=== PATIENT | female | born 2000 | race Caucasian/White ===

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

== ENCOUNTER 2021-06-15 17:28 | Emergency (ER) | payer OTHER ==
[~2021-06-15] VITALS: Ht 167.6 cm; Wt 105.3 kg
--- NOTE | 2021-06-15 21:00 | RAD ---
Exam Date: 06/15/2021 8:26 PM US PELVIS W/TV Indication: Reason: pelvic pain hx of ovarian cysts / Spl. Instructions: / History: . TECHNIQUE: Multiple longitudinal and transverse sonographic images were obtained of the pelvis using a transabdominal and transvaginal approach. Color Doppler imaging was performed on the ovaries bila terally. Transvaginal imaging was included to better evaluate the uterus, ovaries, and adnexa. FINDINGS: The uterus measures 9.4 x 4.2 x 3.7 cm. The endometrial complex measures 10 mm in thickness. The ovaries are normal in size and echogenicity. The right ovary measures 4.6 x 2.1 x 2.0 cm. The left ovary measures 3.0 x 2.2 x 2.3 cm. Color Doppler imaging demonstrates normal vascularity in th e ovaries bilaterally. No pelvic free fluid or mass is seen. IMPRESSION: Normal examination of the uterus and ovaries. Electronically signed by: Thong Acosta MD (06/15/2021 8:57 PM) [facility]
--- NOTE | 2021-06-15 21:46 | PHYS DOC ---
Past Medical History Past Medical History: Asthma, Migraines, Ovarian Cyst, Other Additional Past Medical Histor: poly cyst dx (RONTAPAN TABLET MAKING MACHINE OPERATOR) Past Surgical History: Other Additional Past Surgical Histo: ACL (TAPAN VELASQUEZ Vannesa TABLET MAKING MACHINE OPERATOR) Smoking Status: Current Every Day Smoker Alcohol Use: Occasionally Drug Use: None (RAJITAPAN Manzano TABLET MAKING MACHINE OPERATOR) General Adult EDM: Chief Complaint: PELVIC PAIN HPI: HPI: Patient is a 20 year old female with history of ovarian cyst, PCOS, asthma, presenting to the ED today complaining of 5 out of 10 vaginal pain, symptoms of been going on since yesterday, patient states she feels like something is going to fall out of her vagina. Patient also reports white vaginal discharge, denies any concerns for STDs. Denies anything specifically exacerbating or relieving her pain. She states she feels constipated, last bowel movement was yesterday and hard. History of constipation (RONTAPAN Granado TABLET MAKING MACHINE OPERATOR) Review of Systems: Review of Systems: Constitutional: Denies fever or chills. [] GI: Reports constipation, denies nausea, vomiting, bloody stools or diarrhea. [] Female : Reports vaginal pain, sensation of something falling out of her vagi na : Denies dysuria. [] Musculoskeletal: Denies back pain or joint pain. [] Integument: Denies rash. [] Neurologic: Denies headache, focal weakness or sensory changes. [] Psychiatric: Denies depression or anxiety. [] (RAJINatachaTAPAN Granado TABLET MAKING MACHINE OPERATOR) Heart Score: C/O Chest Pain: N/A Risk Factors: Risk Factors: DM, Current or recent (<one month) smoker, HTN, HLP, family history of CAD, obesity. Risk Scores: Score 0 - 3: 2.5% MACE over next 6 weeks - Discharge Home Score 4 - 6: 20.3% MACE over next 6 weeks - Admit for Clinical Observation Score 7 - 10: 72.7% MACE over next 6 weeks - Early Invasive Strategies (TAPAN VELASQUEZ TABLET MAKING MACHINE OPERATOR) Allergies: Allergies: Allergies Coded Allergies Type Severity Reaction Last Updated Verified No Known Drug Allergies 06/15/21 No (TAPAN VELASQUEZ TABLET MAKING MACHINE OPERATOR) Physical Exam: PE: Constitutional: Well developed, well nourished, no acute distress, non-toxic appearance. [] Abdomen: Bowel sounds normal, soft, no tenderness, no masses, no pulsatile masses. [] Wet prep External pelvis is normal, cervix is visualized, closed, no CMT, no adnexal tenderness Skin: Warm, dry, no erythema, no rash. [] Back: No tenderness, no CVA tenderness. [] Extremities: No tenderness, no cyanosis, no clubbing, ROM intact, no edema. [] Neurologic: Alert and oriented X 3, normal motor function, normal sensory function, no focal deficits noted. [] Psychologic: Affect normal, judgement normal, mood normal. [] (TAPAN VELASQUEZ TABLET MAKING MACHINE OPERATOR) Current Patient Data: Labs: Microbiology 06/15/21 Wet Prep - Final, Complete Vital Signs: Vital Signs Date Time Temp Pulse Resp B/P (MAP) Pulse Ox O2 Delivery O2 Flow Rate FiO2 06/15/21 19:00 99.2 83 16 140/86 (104) 98 Room Air 99.2 (TAPAN VELASQUEZ TABLET MAKING MACHINE OPERATOR) EKG: EKG: [] (TAPAN VELASQUEZ TABLET MAKING MACHINE OPERATOR) Radiology/Procedures: Radiology/Procedures: []PROCEDURE: PELVIS W/TV Exam Date: 06/15/2021 8:26 PM US PELVIS W/TV Indication: Reason: pelvic pain hx of ovarian cysts / Spl. Instructions: / History: . TECHNIQUE: Multiple longitudinal and transverse sonographic images were obtaine d of the pelvis using a transabdominal and transvaginal approach. Color Doppler imaging was performed on the ovaries bilaterally. Transvaginal imaging was included to better evaluate the uterus, ovaries, and adnexa. FINDINGS: The uterus measures 9.4 x 4.2 x 3.7 cm. The endometrial complex measures 10 mm in thickness. The ovaries are normal in size and echogenicity. The right ovary measures 4.6 x 2.1 x 2.0 cm. The left ovary measures 3.0 x 2.2 x 2.3 cm. Color Doppler imaging demonstrates normal vascularity in the ovaries bilaterally. No pelvic free fluid or mass is seen. IMPRESSION: Normal examination of the uterus and ovaries. Electronically signed by: Jaylin Acosta MD (06/15/2021 8:57 PM) [facility] DICTATED and SIGNED BY: JAYLIN ACOSTA MD DATE: 06/15/[id number] 0 (TAPAN VELASQUEZ APRN) Course & Med Decision Making: Course & Med Decision Making Pertinent Labs and Imaging studies reviewed. (See chart for details) This a 20-year-old female checked presenting to the ED today complaining of pelvic pain and sensation of something falling out of her vagina, she is also complaining of vaginal discharge and constipation. Pelvic ultrasound is negative, wet prep positive for BV discharged with Flagyl. Negative urine hCG, UA negative for infection, abdomen supine and upright noted for constipation. Discharged with mag citrate. Discussed constipation prevention and management (TAPAN VELASQUEZ APRN) Course & Med Decision Making Patients Care and treatment plan provided by ER Nurse Practitioner. I was available for consult. Patient's chart reviewed. (SHAYY ADKINS DO) Dragon Disclaimer: Kristian Disclaimer: This electronic medical record was generated, in whole or in part, using a voice recognition dictation system. (TAPAN VELASQUEZ APRN) Departure Departure Impression: Primary Impression: Bacterial vaginosis Additional Impression: Constipation Qualified Codes: K59.00 - Constipation, unspecified Disposition: HOME / SELF CARE / HOMELESS Condition: STABLE Referrals: ARIELA CAIN MD (PCP) Follow-up next week Patient Instructions: Bacterial Vaginosis, [id number], Constipation, Adult Additional Instructions: You were evaluated in the emergency room and noted to have bacterial vaginosis, you were also noted to be constipated. Please take the prescribed antibiotics until completed. Please increase your dietary fiber intake as well as water intake, take MiraLAX daily to reduce incidence of constipation. Scripts Polyethylene Glycol 3350 (MIRALAX) 119 Gm Powder 17 GM PO DAILY for constipation, #255 GM 0 Refills dissolve in water Prov: TAPAN VELASQUEZ APRN 06/15/21 Metronidazole (METRONIDAZOLE) 500 Mg Tablet 1 TAB PO BID for 7 Days, #14 TAB 0 Refills Prov: TAPAN VELASQUEZ APRN 06/15/21 TAPAN VELASQUEZ APRN Jun 15, 2021 21:46 SHAYY ADKINS DO Jun 16, 2021 18:45
[2021-06-15 22:36] LABS: CLARITY,URINE CLEAR; COLOR,URINE YELLOW
[2021-06-15 22:37] LABS: BILIRUBIN,URINE NEGATIVE (NEG)
[2021-06-15 22:38] LABS: AMORPHOUS SEDIMENT,UR PRESENT /HPF; BACTERIA,URINE FEW /HPF (0-FEW); NITRITE,URINE NEGATIVE (NEG); PH,URINE 7.5 (<5.0-8.0); PROTEIN,URINE NEGATIVE (NEG-TRACE); RBC,URINE 0 /HPF (0-2); UROBILINOGEN,URINE 0.2 mg/dL (0.2 mg/dL); WBC,URINE OCC /HPF (0-4)
[2021-06-15 23:00] VITALS: BP 101/71
[2021-06-15] MEDS ORDERED: POLY119P4 PO (23:17)
[2021-06-15] MEDS ORDERED: METR-34 PO (23:17)
[2021-06-15] MEDS ORDERED: BISACODYL 5 MG TABLET.DR. PO STA (23:24)
[2021-06-15] MEDS ORDERED: MAGNESIUM CITRATE 296 ML SOLUTION. PO ONE (23:30)
--- NOTE | 2021-06-15 23:33 | RAD ---
EXAMINATION: Abdominal radiograph. VIEWS: 2 COMPARISON: None INDICATION: 20 years, Female, abdominal pain, constipation. FINDINGS: Nonobstructive bowel gas pattern. Moderate amount of colonic stool burden. No gross pneumoperitoneum. No abnormal intra-abdominal calcifications. Lung bases are unremarkable.No acute osseous process. IMPRESSION: Nonobstructive bowel gas pattern. Moderate amount of colonic stool burden. Electronically signed by: Jacquie Luke MD (06/15/2021 11:31 PM) [facility]
[2021-06-18 17:11] LABS: GC PROBE Negative (Negative)
== END 2021-06-16 00:46 | disposition home or self-care (01) ==
LOC: ER 17:28
DX: N76.0 Acute vaginitis (principal); B96.89 Other specified bacterial agents as the cause of diseases classified elsewhere; K59.00 Constipation, unspecified; J45.909 Unspecified asthma, uncomplicated; G43.909 Migraine, unspecified, not intractable, without status migrainosus; F17.200 Nicotine dependence, unspecified, uncomplicated
CPT/HCPCS: 74021; 76830; 76856; 81001; 81025; 87491; 87591; 99285; Q0111